=== PATIENT | male | born 1980 | race Caucasian/White ===

== ENCOUNTER 2017-04-16 18:16 | Inpatient (IN) | payer OTHER ==
[~2017-04-16] VITALS: Ht 188 cm; Wt 106.4 kg
[2017-04-16] MEDS ORDERED: SODIUM CHLORIDE 0.9% 1,000 ML IV ONE ×2 (18:25→22:04)
[2017-04-16] MEDS ORDERED: SODIUM CHLORIDE 0.9% 1,000ML IVBOLUS ONE (18:30)
[2017-04-16] MEDS ORDERED: SODIUM CHLORIDE FLUSH 10ML SYR IVF ONE (18:30)
[2017-04-16] MEDS ORDERED: LORazepam 2 MG/ML, 1ML IVPush ONE (18:30)
[2017-04-16] MEDS ORDERED: LORazepam 2 MG/ML, 1ML ONE (18:32)
[2017-04-16 18:43] LABS: HEMATOCRIT 49.7 % (39.2-51.8); WHITE BLOOD COUNT 16.5 x10^3/uL (3.4-10)
[2017-04-16 18:53] LABS: ASPARTATE AMINO TRANSFERASE 56 U/L (15-37); BLOOD UREA NITROGEN 14 mg/dL (7-18)
[2017-04-16 19:02] LABS: ACETAMINOPHEN < 2 mcg/mL (10-30); IS PT STATUS REG ER OR PRE ER? YES
[2017-04-16 20:21] LABS: DAU SCREEN DISCLAIMER
[2017-04-16] MEDS ORDERED: ONDANSETRON 2MG/ML, 2ML IVPush PRN (22:30)
[2017-04-16] MEDS ORDERED: hydrALAzine 20 MG/ML, 1ML IVPush PRN (22:30)
[2017-04-16] MEDS: SODIUM CHLORIDE 0.9% 1,000 ML IV SCH (23:01)
[2017-04-16] MEDS: ENOXAPARIN 40 MG/0.4 ML SQ SCH (23:01)
[2017-04-16 23:02] VITALS: BP 145/86
[2017-04-17 02:00] VITALS: BP 117/71
[2017-04-17] MEDS: SODIUM CHLORIDE 0.9% 1,000 ML IV SCH (05:27)
[2017-04-17 06:04] LABS: HEMOGLOBIN 13.6 g/dL (13.7-18.0); WHITE BLOOD COUNT 9.1 x10^3/uL (3.4-10)
[2017-04-17 06:12] LABS: ASPARTATE AMINO TRANSFERASE 35 U/L (15-37); BLOOD UREA NITROGEN 10 mg/dL (7-18)
[2017-04-17 09:11] VITALS: BP_SYST 141; BP_SYST 146; BP_DIAS 90; BP_DIAS 91
[2017-04-17] MEDS: NICOTINE 14MG/24 HR PATCH.TD24 TD SCH (09:44)
[2017-04-17 13:23] VITALS: BP 155/84
[2017-04-17] MEDS ORDERED: BUPR1TAB39 SL (14:04)
[2017-04-17] MEDS ORDERED: LORazepam 2 MG/ML, 1ML ONE (14:39)
[2017-04-17] MEDS: LORazepam 2 MG/ML, 1ML IVPush PRN ×3 (14:42→22:29)
[2017-04-17 18:35] VITALS: BP 138/97
[2017-04-17] MEDS: ENOXAPARIN 40 MG/0.4 ML SQ SCH (22:30)
[2017-04-18] MEDS: LORazepam 2 MG/ML, 1ML IVPush PRN ×5 (02:14→21:12)
[2017-04-18 02:34] VITALS: BP 132/82
[2017-04-18 07:48] VITALS: BP 145/101
[2017-04-18] MEDS: NICOTINE 14MG/24 HR PATCH.TD24 TD SCH (08:40)
[2017-04-18] MEDS ORDERED: ZUBSOLV SL SCH (09:30)
[2017-04-18 13:07] VITALS: BP 146/110
[2017-04-18 13:24] VITALS: BP 133/77
[2017-04-18 14:41] LABS: HEMATOCRIT 41.2 % (39.2-51.8); HEMOGLOBIN 14.3 g/dL (13.7-18.0); WHITE BLOOD COUNT 5.2 x10^3/uL (3.4-10)
[2017-04-18 14:49] LABS: ASPARTATE AMINO TRANSFERASE 33 U/L (15-37); BLOOD UREA NITROGEN 11 mg/dL (7-18)
[2017-04-18] MEDS ORDERED: ONDANSETRON 2MG/ML, 2ML IVPush PRN (20:00)
[2017-04-18] MEDS ORDERED: hydrALAzine 20 MG/ML, 1ML IVPush PRN (20:00)
[2017-04-18 21:05] VITALS: BP 137/85
[2017-04-18] MEDS: ENOXAPARIN 40 MG/0.4 ML SQ SCH (21:13)
[2017-04-19 01:15] VITALS: BP 115/71
[2017-04-19 07:59] VITALS: BP 146/80
[2017-04-19] MEDS: ZUBSOLV SL SCH (09:00)
[2017-04-19] MEDS: NICOTINE 14MG/24 HR PATCH.TD24 TD SCH (09:15)
[2017-04-19] MEDS: LORazepam 2 MG/ML, 1ML IVPush PRN (13:18)
[2017-04-19 13:55] VITALS: BP 126/74
[2017-04-19 14:34] LABS: HIV 1&2 ANTIBODY SCREEN Nonreactive (Nonreactive); HIV-1 p24 ANTIGEN Nonreactive (Nonreactive)
[2017-04-19] MEDS ORDERED: IBUPROFEN 200 MG TABLET PO ONE (19:30)
[2017-04-19] MEDS ORDERED: NICOTINE 21 MG/24 HR PATCH.TD24 TD SCH (20:00)
[2017-04-19 20:40] VITALS: BP 147/89
[2017-04-19] MEDS: ENOXAPARIN 40 MG/0.4 ML SQ SCH (20:49)
[2017-04-20] MEDS ORDERED: IBUPROFEN 200 MG TABLET PO PRN (01:30)
[2017-04-20 02:18] VITALS: BP 98/57
[2017-04-20 08:21] VITALS: BP 142/95
[2017-04-20] MEDS: ZUBSOLV SL SCH (09:00)
== END 2017-04-20 13:15 | disposition home or self-care (01) | DRG 682 ==
LOC: ED 21:20 → EDIP 21:56 → 4EST 22:27 → 4WST 04-17 10:14 → DCLOUNGE 04-20 13:02
PROVIDERS: ADMIT Internal Medicine; ATTEND Internal Medicine
DX: N17.9 Acute kidney failure, unspecified (principal); G93.41 Metabolic encephalopathy; F11.20 Opioid dependence, uncomplicated; S06.0X9A Concussion with loss of consciousness of unspecified duration, initial encounter; D72.829 Elevated white blood cell count, unspecified; K76.0 Fatty (change of) liver, not elsewhere classified; F07.81 Postconcussional syndrome; F19.90 Other psychoactive substance use, unspecified, uncomplicated; S00.81XA Abrasion of other part of head, initial encounter; Z87.891 Personal history of nicotine dependence
CPT/HCPCS: 36415; 70450; 70551; 71010; 76700; 80053; 80307; 80329; 81003; 82140; 82247; 82248; 83735; 84100; 84300; 84484; 85025; 86703; 86704; 86706; 86708; 86803; 87340; 87899; 93005; 95819; 99291; J1650; J2405; 92523-GN; G0435; G0480; J0360; J2060; J7030

== ENCOUNTER 2017-04-22 14:35 | Emergency (ER) | payer MEDICAID, OTHER ==
[~2017-04-22] VITALS: Ht 188 cm; Wt 104.0 kg
[~2017-04-22 14:35] MED LIST: BUPR1TAB39 SL
[2017-04-22 14:40] VITALS: BP 166/101
== END 2017-04-22 15:39 | disposition home or self-care (01) ==
LOC: ED 15:25
DX: F41.1 Generalized anxiety disorder (principal); R55 Syncope and collapse
CPT/HCPCS: 93005; 99283

== ENCOUNTER 2017-04-22 22:51 | Emergency (ER) | payer OTHER ==
[~2017-04-22] VITALS: Ht 185.4 cm; Wt 105.2 kg
[2017-04-22] MEDS ORDERED: LORazepam 1MG TABLET ONE (23:44)
[2017-04-23] MEDS ORDERED: LORazepam 1MG TABLET PO ONE
[2017-04-23 00:04] VITALS: BP 159/99
== END 2017-04-23 00:05 | disposition home or self-care (01) ==
LOC: ED 23:49
DX: F41.0 Panic disorder [episodic paroxysmal anxiety] (principal); F07.81 Postconcussional syndrome; R41.3 Other amnesia
CPT/HCPCS: 93005; 99284